=== PATIENT | female | born 1990 | race Caucasian/White ===

== ENCOUNTER 2016-12-26 13:08 | Emergency (ER) | payer BC ==
[~2016-12-26] VITALS: Ht 160 cm; Wt 71.0 kg
[2016-12-26 13:10] VITALS: Ht 160 cm; Wt 71.0 kg
[2016-12-26] MEDS ORDERED: CEPH-443 PO (14:05)
[2016-12-26] MEDS ORDERED: CETI10CA PO (14:06)
[2016-12-26] MEDS ORDERED: HC30CR25 TOP (14:06)
[2016-12-26] MEDS ORDERED: BEN25 PO (14:06)
--- NOTE | 2016-12-26 14:54 | ERD ---
ER Documentation Chief Complaint Date/Time DATE: 12/26/16 TIME: 14:52 Chief Complaint FACIAL RASH X 2 DAYS HPI Patient is a 26-year-old female who presents to the ED with a rash on her arms and face. She states that she saw multiple bugs in her house and states that she possibly got bitten on her face and arms. She states that the rashes are very itchy. Denies drainage. Denies fever or chills. She denies having these in the past. Denies chest pain, cough, shortness of breath or difficulty breathing. Denies headache or dizziness. Denies difficulty swallowing. Denies tongue or lip swelling. Denies recent travel or change in hygiene or personal products. No other complaints. ROS All systems reviewed and are negative except as per history of present illness. Medications Home Meds Active Scripts Hydrocortisone* Topical (Hydrocortisone* Topical) 2.5%-28.3 Gm Cream..g., 1 APPLIC TOP BID, #2 TUB Prov:ENOCH MAURER PA-C 12/26/16 Cetirizine Hcl* (Zyrtec*) 10 Mg Capsule, 10 MG PO DAILY, #30 TAB.CHEW Prov:ENOCH MAURER PA-C 12/26/16 Diphenhydramine Hcl* (Benadryl*) 25 Mg Cap, 25 MG PO Q6, #30 CAP Prov:ENOCH MAURER PA-C 12/26/16 Cephalexin* (Keflex*) 500 Mg Capsule, 500 MG PO QID for 5 Days, CAP Prov:ENOCH MAURER PA-C 12/26/16 PMhx/Soc History of Surgery: No Anesthesia Reaction: No Hx Neurological Disorder: No Hx Respiratory Disorders: No Hx Cardiac Disorders: No Hx Psychiatric Problems: No Hx Miscellaneous Medical Probl: No Hx Alcohol Use: No Hx Substance Use: No Hx Tobacco Use: No Smoking Status: Never smoker FmHx Family History: No coronary disease, No diabetes, No other Physical Exam Vitals Vital Signs Date Time Temp Pulse Resp B/P Pulse Ox O2 Delivery O2 Flow Rate FiO2 12/26/16 13:10 98.1 100 18 123/66 99 Physical Exam GENERAL: Well-developed, well-nourished female. Appears in no acute distress. HEAD: Normocephalic, atraumatic. EYES: Pupils are equally reactive bilaterally. EOMs grossly intact. No conjunctival erythema. ENT: Moist mucous membranes. No uvula deviation. No kissing tonsils. No exudates. No tongue or lip swelling NECK: Supple. No lymphadenopathy or thyromegaly. No meningismus. negative kernig. negative brudinski. LUNG: Clear to auscultation bilaterally. No rhonchi, wheezing, rales or coarse breath sounds. HEART: Regular rate and rhythm. No murmurs, rubs or gallops. Extremities: Equal pulses bilaterally. No peripheral clubbing, cyanosis or edema. No unilateral leg swelling. NEUROLOGIC: Alert and oriented. Moving all four extremities. 5/5 strength in all extremities. Normal speech. Steady gait. SKIN: Normal color. Warm and dry. Erythematous lesions on face. With excoriation. No drainage. No wheals. Capillary refill < 2 seconds Procedures/MDM ER COURSE: I kept the patient and/or family informed of laboratory and diagnostic imaging results throughout the emergency room course. MEDICAL DECISION MAKING: This is a 26-year-old female who presents with rash on her face and arms 1 day. Vital signs were reviewed. Patient is afebrile. Patient is not hypoxic. Patient is not toxic or ill-appearing. Patient has rash of unknown etiology likely insect bite versus allergic reaction. Patient does not show signs of respiratory distress. Patient is speaking in full sentences does not show tongue or lip swelling. Low suspicion for necrotizing fasciitis, SJS, toxic epidermal necrolysis, Kawasaki, erythema multiforme, gangrene, scarlet fever, meningococcemia, sepsis, anaphylaxis, sepsis, deep space infection, or foreign body. DISCHARGE: At this time, patient is stable for discharge and outpatient management with no new complaints during the ER course. Patient was sent home with Keflex, Benadryl , Zyrtec and hydrocortisone cream. Patient will be discharged home with instructions to recheck for new or worsening symptoms such as fever, nausea, weakness, LOC and to follow up with primary care in the next 1-2 days. Patient was advised to return to the ER for any new or worsening symptoms. Plan was discussed and patient and/or family understands and agrees. Home instructions were given. Departure Diagnosis: Primary Impression: Rash Condition: Stable Patient Instructions: Self-Care for Skin Rashes, Insect Bites and Stings Additional Instructions: Call your primary care doctor TOMORROW for an appointment during the next 1-2 days.See the doctor sooner or return here if your condition worsens before your appointment time. ENOCH MAURER PA-C Dec 26, 2016 14:54
== END 2016-12-26 14:06 | disposition home or self-care (01) ==
LOC: E/R 13:08
DX: R21 Rash and other nonspecific skin eruption (principal)
CPT/HCPCS: 99283